=== PATIENT | male | born 1975 | race Caucasian/White ===

== ENCOUNTER → 2019-04-13 | Outpatient (CLI) | payer OTHER | LOC: M.CT 12:53 | DX: Z13.6 Encounter for screening for cardiovascular disorders (principal) ==

== ENCOUNTER 2021-06-09 09:37 | Observation (INO) | payer BC ==
[~2021-06-09] VITALS: Ht 180.3 cm; Wt 118.8 kg
[2021-06-09] VITALS (8 sets, daily range): BP systolic 100–143; BP diastolic 58–90
--- NOTE | ~2021-06-09 | H ---
[address] [address] HISTORY AND PHYSICAL Name: WINIFRED GAYTAN Room: [address] Adolfo MAndreyRAndrey#: [id number] Admission: 06/09/21 Attend Phys: Elgin Dhaliwal MD Discharge: 06/10/21 Date of : 79 Report #: [id number] THIS REPORT FOR: cc: FAM - No family physician/PCP FAM - No family physician/PCP [facility],Medical Records Staff ~ For History and Physical please refer to the consultation note in the patient's medical record. By: [id number] Records Staff KAMAR /JENNIFER
[2021-06-09] MEDS ORDERED: NEXIUM20 MG PO (09:46)
[2021-06-09] MEDS ORDERED: LIPITOR10 MG PO (09:46)
[2021-06-09] MEDS ORDERED: CARVEDILOL12.5 MG PO (09:46)
[2021-06-09] MEDS ORDERED: TRIAMTERENE/HCT1 CA1 PO (09:46)
[2021-06-09] MEDS ORDERED: MICARDIS 20MG T20 M1 PO (09:46)
[2021-06-09 09:57] LABS: ABSOLUTE EOSINOPHILS 0.2 thou/uL (0.0-0.7); ABSOLUTE LYMPHOCYTES 1.9 thou/uL (0.8-5.3); ABSOLUTE MONOCYTES 0.4 thou/uL (0.0-1.2); ABSOLUTE NEUTROPHILS 3.6 thou/uL (1.6-8.1); BASOPHILS 0.8 %; EOSINOPHILS 3.9 %; HEMATOCRIT 41.5 % (42.0-52.0); HEMOGLOBIN 14.3 gm/dL (14.0-18.0); LYMPHOCYTES 30.6 %; MCH 29.9 pg (26.0-34.0); MCHC 34.6 g/dL (28.0-37.0); MCV 86.4 fL (80.0-100.0); NUCLEATED RBCS 0 /100WBC; PLATELET COUNT* 190 thou/uL (150-400); POLYS 57.7 %; RDW-CV 13.4 % (10.5-14.5); WBC 6.3 thou/uL (4.0-11.0)
[2021-06-09 10:08] LABS: CALCIUM 9.3 mg/dL (8.5-10.1); CREATININE 1.3 mg/dL (0.6-1.3); POTASSIUM 3.6 mmol/L (3.5-5.1)
[2021-06-09 10:18] LABS: ALBUMIN 4.3 g/dL (3.4-5.0); MAGNESIUM 1.9 mg/dL (1.8-2.4); TOTAL BILIRUBIN 0.4 mg/dL (<0.1-1.0); TOTAL PROTEIN 7.2 g/dL (6.4-8.2)
[2021-06-09] MEDS ORDERED: NITROSTAT0.4 M1 SUBLING (10:27)
[2021-06-09 12:33] LABS: CHOLESTEROL 147 mg/dL (<200); HDL CHOLESTEROL 27 mg/dL (>40); LDL CHOLESTEROL 54 mg/dL (<100); SERUM ASSESSMENT Clear; TC:HDL 5.4 Ratio (Not establshd); TRIGLYCERIDE 330 mg/dL (<150); VLDL 66 mg/dL (<40)
--- NOTE | 2021-06-09 13:35 | EKG ---
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 : 1975 Requested By: Tristan Maxwell Order Number: [id number] MD: Alessio Dowd Measurements Intervals [place] Rate: 59 P: 21 NC: 163 QRS: -28 QRSD: 128 T: 54 QT: 420 QTc: 416 Interpretive Statements Sinus rhythm Nonspecific intraventricular conduction delay Baseline wander in lead(s) V1,V5 No previous ECG available for comparison Electronically Signed On 06-09-2021 13:35:32 CDT by Alessio Dowd [email or web address] <ELECTRONICALLY SIGNED> By: Alessio Dowd MD, FAC 06/09/21 1335 0935 0935 Alessio Dowd MD, [facility] /EPI
--- NOTE | 2021-06-09 16:19 | CARD ---
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 Dowd, Stephany GREY, [employer] RTR, Kierra Iqbal RTR Procedures Performed Left heart cath with LV gram, Drug eluting stent placement in the proximal LAD, PTCA to the first diagonal. Indication Chest pain Risk Factors Hypercholesterolemia, Hypertension, Tobacco History () Admission/Lab Medications/Medications given during procedure Aspirin, Glycoprotein IllbIlla Inhibitors, Heparin Unfract. Procedure Narrative The patient was brought urgently to the Cardiac Catheterization Laboratory and was prepped and draped in a sterile manner. The right femoral was infiltrated with 2% Lidocaine subcutaneous anesthesia. IV conscious sedation was used throughout procedure with appropriate monitoring and was performed in the presence of a registered nurse who was an independent trained observer other than the physician performing the procedure. A 6Fr Concord sheath was inserted into the right femoral artery. Coronary angiography was performed using coronary diagnostic catheters. The right coronary system was accessed and visualized with a Diagnostic 6Fr JR4 catheter. The left coronary system was accessed and visualized with a Diagnostic 6Fr JL4 [place] [address] CARDIAC CATH REPORT Name: WINIFRED GAYTAN Room: [address]#: [id number] Admission: 06/09/21 Attend Phys: Elgin Dhaliwal MD Discharge: Date of : 79 Report #: [id number] catheter. The left ventricle was accessed and visualized with a Diagnostic 6Fr Straight pigtail catheter. Left ventricular/Aortic Valve gradient assessed via catheter pullback. Left ventriculogram was performed in LAUREN projection. Pre-demployment femoral angiogram was performed in LAUREN. Closure device was deployed with a 6 Fr Angioseal. The patient tolerated the procedure well and there were no complications associated with the procedure. There was no hematoma. Intraoperative Conscious Sedation Sedation start time: 1340 Case end Time: 1441 Fentanyl 50.0 mcg Versed 2.0 mg Fluoro Time: 8.8 minutes Dose: DAP 547271 cGycm2 2065 mGy Contrast Type and Amount: visipaque 340 ml Coronary Angiography The patient's coronary anatomy is right dominant. Diagnostic Cath Left Main The left main coronary artery is normal and bifurcates into a left anterior descending and circumflex coronary artery. LAD The left anterior descending coronary artery has a 70% stenoses proximal to and just distal to the first diagonal branch. There is moderate calcification in this region. The origin of the first diagonal branch is moderately calcified and 50% narrowed. The mid vessel exhibits myocardial bridging. The distal vessel is free of significant disease. Diagonal 1 The first diagonal is a large and branch vessel that is moderately calcified and 50% narrowed proximally. Circumflex The circumflex coronary artery is normal in its proximal mid and distal portion. OM1 The first obtuse marginal branch is a small vessel that is normal. OM2 The circumflex terminates in a large branch second obtuse marginal branch that is normal. Right Coronary The right coronary artery is a large dominant vessel. The right coronary is normal in its proximal mid and distal portion. R PDA A large PDA is normal. RPLV A large branched right posterior [place] [address] CARDIAC CATH REPORT Name: WINIFRED GAYTAN Room: [address]#: [id number] Admission: 06/09/21 Attend Phys: Elgin Dhaliwal MD Discharge: Date of : 79 Report #: [id number] Left Ventriculography The left ventricle is normal in size with normal contractility. The left ventricular ejection fraction is estimated to be 65%. Left ventricular wall motion abnormalities are not present. Hemodynamics The aortic pressure is 118/56/ mmHg with a mean of 87 mmHg. The left ventricular pressure is 94/1 mmHg with a mean of 9 mmHg. The left ventricular end diastolic pressure is 13 mmHg. There was no gradient across the aortic valve upon pullback. Pullback from the left ventricle to the aorta revealed no gradient across the aortic valve. PCI Technique Lesion Anticoagulation was achieved with Heparin. bolus of IV aggrastat given Percutaneous coronary intervention was performed on the proximal left anterior descending artery segment. The lesion stenosis prior to intervention was 70% with ADILIA 3 flow. A XB LAD 4 6Fr Guide Catheter was used to engage the Left ostium. A 190cm BMW Interventional Guidewire was used to cross the lesion. BALLOON DILATION A Balloon catheter 2.5 x 12 Euphora was inserted and inflated up to 20atm for 20seconds. Repeat angiography revealed the following post-dilatation results: 40% stenosis. Additional Inflation: 20atm for 7seconds. The 70% stenosis was noted just proximal and just distal to the first large diagonal branch of the LAD. STENT DEPLOYMENT A drug-eluting stent 3.5 x 34 Resolute [place] was inserted and inflated up to 14atm for 26seconds. Repeat angiography revealed the following post-stent deployment results: 0% stenosis. Additional Inflation: 22atm for 17seconds. Additional Inflation: 22atm for 9seconds. Following stent deployment in the proximal LAD that staddled the takeoff of the first diagonal branch, the ostium of the diagonal artery was noted to have narrowed to 80% secondary to plaque shift. Final angiography reveals 0 % stenosis with ADILIA 3 flow. PCI Technique Lesion 2 Percutaneous Coronary Intervention was performed on the first diagonal branch segment. Percutaneous coronary intervention was performed on the first diagonal branch segment. The lesion stenosis [facility] [address] [place] [address] CARDIAC CATH REPORT Name: WINIFRED GAYTAN Room: [address] Adolfo M.R.#: [id number] Admission: 06/09/21 Attend Phys: Elgin Dhaliwal MD Discharge: Date of : 79 Report #: [id number] prior to intervention was 80% with ADILIA 3 flow. A XB LAD 4 6Fr Guide Catheter was used to engage the ostium. A 190cm BMW Interventional Guidewire was used to cross the lesion. Balloon Dilation A Balloon catheter 2.5 x 12 Euphora was inserted and inflated up to 8atm for 20seconds. Repeat angiography revealed the following post-dilatation results: 0% stenosis. Additional Inflation: 18atm for 17seconds. Balloon previously used in LAD. Final angiography reveals 0 % stenosis with ADILIA 3 flow. Conclusion 1. Single-vessel coronary artery disease with significant stenoses involving the proximal to mid left anterior descending coronary artery. 2. Normal left-ventricular end-diastolic pressure. 3. Normal left ventricular systolic function on ventriculogram. 4. Successful placement of a drug eluting stent in the proximal LAD. 5. Following placement of the stent that straddled the takeoff of the first diagonal branch, the ostium was noted to have a 80% ostial stenosis secondary to plaque shift. There was 0% stenosis after PTCA of the ostium of the diagonal branch by advancing a PTCA balloon through the stent struts in the LAD Recommendations 1. Consider percutaneous coronary intervention to the proximal to mid left inner descending coronary artery. 2. Continue aggressive risk factor modification. Medications Administered Prasugrel Diagnostic Cath Approved by: Elgin Dhaliwal MD Date/Time: <ELECTRONICALLY SIGNED> By: Alessio Dowd MD, FACC 06/09/211617 17 17Davimeghann Dowd MD, FACC /INF
--- NOTE | 2021-06-09 16:51 | CON ---
[address] [address] CONSULTATION Name: WINIFRED GAYTAN Room: [address] M.R.#: [id number] Admission: 06/09/21 Attend Phys: Elgin Dhaliwal MD Discharge: Date of : 79 Report #: [id number] THIS REPORT FOR: cc: FAM - No family physician/PCP FAM - No family physician/PCP Elgin Dhaliwal MD [facility] ~ DATE OF CONSULTATION: 06/09/2021 CARDIOLOGY CONSULTATION INDICATION: Unstable angina. HISTORY OF PRESENT ILLNESS: The patient is a 46-year-old white male with risk factors including hypertension, dyslipidemia, family history of coronary artery disease, tobacco use and elevated calcium score. The patient presents with progressive midsternal chest discomfort with activity associated with radiation to the back. He has associated shortness of breath. Symptoms resolved with rest. This has been occurring over the past couple of weeks with increasing severity and frequency. He has had some mild nausea with the episodes, but no vomiting. He denies diaphoresis. PAST MEDICAL HISTORY: 1. Hypertension. 2. Dyslipidemia. 3. Chronic tobacco use. 4. Coronary artery disease. ALLERGIES: PENICILLIN, WHICH CAUSES A RASH. HOME MEDICATIONS: Elavil 10 mg at bedtime, amlodipine 5 mg daily, atorvastatin 40 mg at bedtime, carvedilol CR 80 mg daily, Nexium 20 mg daily, fenofibrate 48 mg daily, Nitrostat sublingual p.r.n. Micardis 80 mg daily, Maxzide 75/50 one tablet daily. SOCIAL HISTORY: The patient smokes tobacco cigarettes daily. Drinks alcohol occasionally. He is . REVIEW OF SYSTEMS: A 14-point review of systems as per HPI, otherwise unremarkable. PHYSICAL EXAMINATION: VITAL SIGNS: Blood pressure 104/60, pulse 63. GENERAL: This is a pleasant gentleman who does not appear to be in distress. HEENT: Head is normocephalic, atraumatic. Extraocular muscles intact. [place] [address] CONSULTATION Name: WINIFRED GAYTAN Room: [address] M.R.#: [id number] Admission: 06/09/21 Attend Phys: Elgin Dhaliwal MD Discharge: Date of : 79 Report #: [id number] NECK: Examination of the neck shows no jugular venous distention. There are no carotid bruits. CHEST: Reveals clear lung alfaro without wheezes or rales. CARDIOVASCULAR: Reveals a regular rhythm with normal S1 and S2. I do not appreciate gallop or murmur. ABDOMEN: Reveals normal bowel sounds. The abdomen is soft, nontender. EXTREMITIES: Shows no edema. Peripheral pulses 2+ and palpable. SKIN: Warm and dry. DIAGNOSTIC DATA: A 12-lead EKG shows sinus rhythm with nonspecific T-wave flattening and subtle ST segment depression. Chest x-ray is without acute cardiopulmonary abnormality. IMPRESSION AND RECOMMENDATIONS: 1. Unstable angina. We will proceed to coronary catheterization and probable intervention pending those results. 2. Coronary artery disease. Continue aspirin daily and risk factor modification. 3. Hypertension. Blood pressure is stable on home regimen at this time. 4. Dyslipidemia. Continue statin agent and Tricor with goal LDL of 70 or less. 5. Chronic tobacco use. Cessation discussed and advised. <ELECTRONICALLY SIGNED> By: Elgin Dhaliwal MD, FACC 06/09/21 1651 1124 [id number] Dhaliwal MD, FACC /nt
--- NOTE | 2021-06-09 16:58 | EKG ---
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
[2021-06-10 00:37] VITALS: BP 121/52
[2021-06-10 04:49] VITALS: BP 133/68
[2021-06-10 07:12] LABS: GLYCOHEMOGLOBIN (HGB A1C) 8.6 % (4.8-5.6)
[2021-06-10 09:12] VITALS: BP 133/76
[2021-06-10] MEDS ORDERED: EFFIENT10 MG PO (09:19)
[2021-06-10] MEDS ORDERED: LIPITOR 40 MG T40 M1 PO (09:19)
[2021-06-10] MEDS ORDERED: BAYER CHEWABLE81 MG PO (09:19)
[2021-06-10] MEDS ORDERED: COREG6.25 MG PO (09:25)
[2021-06-10] MEDS ORDERED: NORVASC5 MG PO (09:25)
--- NOTE | 2021-06-10 09:39 | D ---
[address] [address] DISCHARGE SUMMARY Name: LUKASDWIGHTWINIFREDGAYATHRI LAKHANI Room: [address] M.R.#: [id number] Admission: 06/09/21 Attend Phys: Elgin Dhaliwal MD Discharge: Date of : 79 Report #: [id number] THIS REPORT FOR: cc: FAM - No family physician/PCP FAM - No family physician/PCP Elgin Dhaliwal MD [facility] ~ DATE OF DISCHARGE: 06/10/2021 CARDIOLOGY DISCHARGE SUMMARY DISCHARGE DIAGNOSES: 1. Unstable angina. 2. Coronary artery disease. 3. Hypertension. 4. Dyslipidemia. 5. Type 2 diabetes mellitus. 6. Tobacco use. 7. Family history of coronary artery disease. PROCEDURES DURING HOSPITALIZATION: 1. Coronary angiography. 2. Left heart catheterization. 3. Left ventriculography. 4. Percutaneous coronary intervention to the proximal to mid left anterior descending coronary artery with drug-eluting stent placement. HOSPITAL COURSE: The patient was admitted to the hospital with progressive chest discomfort consistent with unstable angina. The patient was taken to the cardiac catheterization lab and found to have critical stenoses involving the proximal to mid left anterior descending coronary artery. The remainder of his coronary vasculature was free of significant disease. He underwent drug-eluting stent placement with excellent result. The patient was recovered in usual fashion overnight. He is being discharged uneventfully. DISCHARGE MEDICATIONS: Will include Effient 10 mg p.o. daily, aspirin 81 mg p.o. daily, atorvastatin 40 mg p.o. daily, carvedilol 6.25 mg p.o. b.i.d., Elavil 10 mg at bedtime, amlodipine 5 mg daily, sublingual nitroglycerin p.r.n., Micardis 80 mg daily, Maxzide 75/50 one tablet daily. DISPOSITION: The patient will follow up with Cardiology in 4 weeks. <ELECTRONICALLY SIGNED> By: Elgin Dhaliwal MD, FACC 06/10/21 0939 0823 [id number] Dhaliwal MD, FACC /nt
[2021-06-10 09:47] VITALS: BP 133/76
[2021-06-10 15:39] VITALS: BP 133/76
== END 2021-06-10 11:20 | disposition home or self-care (01) ==
LOC: M.ERS 09:37 → M.TBA-ER 11:17 → M.2W 17:53
PROVIDERS: Emergency Medicine Emergency Medical Services; Registered Nurse; ADMIT Internal Medicine Cardiovascular Disease; ATTEND Internal Medicine Cardiovascular Disease
DX: I25.110 Atherosclerotic heart disease of native coronary artery with unstable angina pectoris (principal); Z20.822 Contact with and (suspected) exposure to COVID-19; I10 Essential (primary) hypertension; E78.5 Hyperlipidemia, unspecified; E11.9 Type 2 diabetes mellitus without complications; F17.210 Nicotine dependence, cigarettes, uncomplicated; Z79.82 Long term (current) use of aspirin; Z79.899 Other long term (current) drug therapy